=== PATIENT | male | born 1960 | race Caucasian/White ===

== ENCOUNTER 2019-04-08 18:11 | Emergency (ER) | payer OTHER, SELFPAY ==
[2019-04-08 18:12] VITALS: BP 136/78; PULSE 90; RESP 18; TEMP 36.9; O2SAT 95; BMI 25.8
--- NOTE | 2019-04-08 19:32 | ED.RN ---
patient left without being seen at 1925
== END 2019-04-08 20:13 | disposition left against medical advice (07) ==
LOC: ED 18:46
PROVIDERS: Emergency Provider Emergency Medicine; Family Provider Family Medicine; PCP Family Medicine
DX: R69 Illness, unspecified (principal)

== ENCOUNTER → 2019-04-23 | Outpatient (CLI) | payer OTHER, SELFPAY ==
[2019-04-08 18:12] VITALS: BMI 25.8
--- NOTE | 2019-04-23 14:40 | STRESSREP ---
Stress Test Report Date: 04-23-19 Procedure: Exercise tolerance test Indications: CAD; PCI; pre-CDL evaluation Consent: Per the patient Procedure: The patient exercised on a Scout protocol for 9 minutes completing Stage III achieving a peak heart rate of 150 bpm (92 % predicted maximal heart rate) with a peak blood pressure 152/68 mmHg and a peak MET capacity of approximately 10 MET's. The baseline ECG demonstrated normal sinus rhythm; anterior [place] of indeterminate age cannot be excluded. The peak exercise ECG demonstrated no obvious ECG changes. There was a rare PVC during exercise and early recovery. The functional capacity was considered good. The patient had no complaint of chest discomfort during exercise or recovery. The examination was discontinued secondary to dyspnea. Impression: 1. Technically adequate (percent predicted maximal heart rate greater than 85%) exercise tolerance test 2. Peak exercise ECG with no obvious ECG changes 3. There was a rare PVC during exercise and early recovery This note was generated with [employer] software. It may contain incorrect words, spelling, and punctuation that were not noted in checking the note before signing.
== END | disposition home or self-care (01) ==
LOC: CVS 11:38
PROVIDERS: Family Provider Family Medicine; PCP Family Medicine; Referring Provider Family Medicine; Visit Provider Family Medicine
DX: R07.89 Other chest pain (principal); I25.10 Atherosclerotic heart disease of native coronary artery without angina pectoris
CPT/HCPCS: 93017